=== PATIENT | male | born 1945 | race Caucasian/White ===

== ENCOUNTER 2016-10-15 01:59 | Inpatient (IN) | payer OTHER, MEDICARE ==
[~2016-10-15] VITALS: Ht 188 cm; Wt 115.7 kg
[~2016-10-15 01:59] MED LIST: ASPIRIN EC325 M2 PO; ASPIRIN EC81 M1 PO; BENAZEPRIL HCL40 MG PO; COLACE100 M1 PO; DILAUDID2 M1 PO; GLUCOPHAGE1000 M1 PO; MIRALAX17 G1 PO; NORVASC5 M1 PO; PRAVASTATIN SOD10 M2 PO
--- NOTE | 2016-10-15 10:22 | Admission Core Measures ---
Admission Meds I reviewed the following Meds: Current Medications Sig/Betty Start time Last Medication Dose Stop Time Status Admin Acetaminophen 975 MG ONCE 10/15 0000 NR (Tylenol) 10/15 2358 Amlodipine Besylate 5 MG DAILY 10/15 1000 AC (Norvasc) Cefazolin Sodium 2,000 MG ONCE 10/15 0000 NR (Kefzol-Ancef Inj) 10/15 2358 Lisinopril 20 MG DAILY 10/15 1000 AC (Prinivil) Oxycodone HCl 10 MG ONCE 10/15 0000 NR (Roxicodone) 10/15 2358 Pravastatin Sodium 10 MG 1700 10/15 1700 AC (Pravachol) Acute Coronary Syndrome Inclusion Criteria ACS Diagnosis No Inpatient Core Measures LDL Reminder: If No, please order W/I first 24hr of stay Congestive Heart Failure Inclusion Criteria CHF Diagnosis No Cerebrovascular accident Inclusion Criteria CVA/TIA Diagnosis No Inpatient Core Measures Bedside Swallow Eval Reminder: If BSE failed, place ST order Antithrombotic Reminder: Order Antithrombotic Medication by end of day 2 Antithrombotic Reminder: Document Reason Antithrombotic Not ordered by end of day 2 AFIB/Flutter Reminder: If Present, add to problem list AFIB/Flutter Reminder: Order Anticoag Medication for pts with AFIB/Flutter Atherosclerosis Reminder: If Present, add to problem list LDL Reminder: If No, please order W/I first 24hr of stay PT Order Reminder: If No, please order Venous thromboembolism Inpatient Core Measures VTE Risk Factors: Age > 40, Surgery No [facility] VTE prophylaxis d/t No contraindications No VTE Pharm Prophylaxis d/t No contraindications Inclusion Criteria - Per Current guidelines, there needs to be overlap - treatment for the first 5 days of Warfarin therapy. - Parenteral Anticoagulation (IV or SC) needs to be - given along with Warfarin therapy. VTE Diagnosis No VTE Type NONE VTE Confirmed by (Test) NONE Problem List As ranked by this Provider includes Assessment & Plan 1. Unilateral primary osteoarthritis, right knee HOME MEDS Home Med List Amlodipine Besylate (Norvasc) 5 MG TABLET 1 TAB PO DAILY UNKNOWN (Reported) Aspirin (Ecotrin*) 81 MG TABLET.DR 1 TAB PO DAILY PROPHO (Reported) Benazepril HCl 40 MG TABLET 1 TAB PO DAILY UNKNOWN (Reported) Metformin HCl (Glucophage) 1,000 MG TABLET 1 TAB PO BID DIABETES (Reported) Pravastatin Sodium 10 MG TABLET 1 TAB PO DAILY CHOLESTEROL (Reported)
[2016-10-15] MEDS ORDERED: COLACE100 M1 PO (10:31)
[2016-10-15] MEDS ORDERED: ASPIRIN EC325 M2 PO (10:31)
[2016-10-15] MEDS ORDERED: DILAUDID2 M1 PO (10:32)
[2016-10-15] MEDS ORDERED: PRILOSEC OTC20 M1 PO (10:32)
[2016-10-15] MEDS ORDERED: MIRALAX17 G1 PO (10:32)
[2016-10-15] MEDS ORDERED: MS CONTIN15 M2 PO (10:32)
--- NOTE | 2016-10-15 10:37 | Patient Discharge Instructions ---
Discharge Instructions General Discharge Information You were seen/treated for: RIGHT KNEE PAIN You had these procedures: RIGHT TOTAL KNEE REPLACEMENT Watch for these problems: INCREASING PAIN, REDNESS, WARMTH, SWELLING. DRAINAGE OF ANY TYPE FROM INCISION. INABILITY TO BEAR WEIGHT ON RIGHT LEG. FEVER >101.5. Do not soak the wound: Yes No bath, but you may shower: Yes Other wound care: NO OINTMENTS OF ANY TYPE AT ANY TIME ON INCISION, NO EXCEPTION. Special Instructions: ASPIRIN 325 TO BE TAKEN TWICE DAILY FOR MINIMUM OF 3 WEEKS. PLEASE TAKE PRILOSEC TO PROTECT YOUR STOMACH LINING WHILE ON ASPIRIN. PAIN MEDICATIONS CAN BE CONSTIPATING. PLEASE BE SURE YOU ARE TAKING MIRALAX AND COLACE UNTIL HAVING REGULAR BOWEL MOVEMENTS. Diet Continue normal diet: Yes Recommended Diet: Heart Healthy Additional DIET Information: ADVANCE TOLERATED Activity Full Activity/No Limits: No Activity Self Limited: Yes Pounds, do NOT lift more than: 10 Additional ACTIVITY Info: WEIGHT BEAR TOLERATED ON RIGHT LEG Acute Coronary Syndrome Inclusion Criteria At DC or during hospital stay patient has or had the following: ACS DIAGNOSIS No Discharge Core Measures Meds if any: Prescribed or Continued at Discharge Meds if any: NOT Prescribed or Continued at Discharge Congestive Heart Failure Inclusion Criteria At DC or during hospital stay patient has or had the following: CHF DIAGNOSIS No Discharge Core Measures Meds if any: Prescribed or Continued at Discharge Meds if any: NOT Prescribed or Continued at Discharge Cerebrovascular accident Inclusion Criteria At DC or during hospital stay patient has or had the following: CVA/TIA Diagnosis No Discharge Core Measures Meds if any: Prescribed or Continued at Discharge Meds if any: NOT Prescribed or Continued at Discharge Venous thromboembolism Inclusion Criteria VTE Diagnosis No VTE Type NONE VTE Confirmed by (Test) NONE Discharge Core Measures - Per Current guidelines, there needs to be overlap - treatment for the first 5 days of Warfarin therapy. - If discharged on Warfarin prior to 5 days of - overlap therapy, the patient will need to be - assessed for post discharge needs including - *Post discharge parental anticoagulation - *Warfarin and/or parental anticoagulation education - *Follow up date to check INR post discharge At least 5 days overlap therapy as Inpatient No Meds if any: Prescribed or Continued at Discharge Note: Overlap Therapy is Warfarin and Anticoagulant Meds if any: NOT Prescribed or Continued at Discharge
--- NOTE | 2016-10-15 10:40 | Surgical Discharge Summary ---
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 Patient/Self What is Your Primary Language? Luxembourgish Review of Systems: SEE H&P Hospital Course Course Attending Physician: CARITO HARVEY MD Primary Care Physician: JOSUE CARDENAS MD Hospital Course: VANNESA WAS ADMITTED TO THE HOSPITAL ON 10/15/2016 FOR AN ELECTIVE RIGHT TOTAL KNEE REPLACEMENT. HE TOLERATED THE PROCEDURE WELL AND WAS TRANSFERRED TO A GENERAL SURGICAL FLOOR. HIS DIET WAS ADVANCED AND TOLERATED, HIS PAIN WAS WELL CONTROLLED WITH ORAL PAIN MEDICATIONS. HE VOIDED SPONTANEOUSLY. HIS NEUROVASCULAR STATUS REMAINED INTACT. HE WAS EVALUATED AND TREATED BY PT. HE WAS DEEMED APPROPRIATE FOR DISCHARGE. Allergies: Coded Allergies: No Known Drug Allergies (03/25/16) Disposition Summary Disposition Principal Diagnosis: RIGHT KNEE UNILATERAL PRIMARY OSTEOARTHRITIS Additional Diagnosis: NONE Discharge Disposition: SNF Discharge Instructions General Discharge Information Code Status: Full Code Patient's Diet: HEART HEALTHY, ADVANCE TOLERATED Patient's Activity: WBAT Follow-Up Instructions/Appts: 6 WEEKS FROM DATE OF SURGERY IN OFFICE WITH DR. HARVEY Medications at Discharge Discharge Medications: Continue taking these medications: Metformin HCl (Glucophage) 1,000 MG TABLET 1 Tablet ORAL TWICE DAILY Comments: NOT GIVEN Benazepril HCl (Benazepril HCl) 40 MG TABLET 1 Tablet ORAL DAILY Comments: NOT GIVEN Pravastatin Sodium (Pravastatin Sodium) 10 MG TABLET 1 Tablet ORAL DAILY Comments: LAST GIVEN 03/29/16 @ 0900 Amlodipine Besylate (Norvasc) 5 MG TABLET 1 Tablet ORAL DAILY Comments: LAST GIVEN 03/29/16 @ 0900 Aspirin (Ecotrin*) 81 MG TABLET. 1 Tablet ORAL DAILY Start taking the following new medications: Aspirin (Ecotrin*) 325 MG TABLET. 1 Tablet ORAL TWICE DAILY Qty = 60 No Refills Docusate Sodium (Colace) 100 MG CAPSULE 1 Capsule ORAL TWICE DAILY Qty = 14 No Refills Instructions: DISCONTINUE USE IF YOU DEVELOP LOOSE STOOL OR DIARRHEA Hydromorphone HCl (Dilaudid) 2 MG TABLET 1-2 Tablet ORAL EVERY 4-6 HOURS as needed for PAIN Qty = 36 No Refills Polyethylene Glycol 3350 (Miralax) 17 GRAM POWD.PACK 1 Packet ORAL DAILY Qty = 7 No Refills Instructions: dissolve in water, DISCONTINUE USE IF YOU DEVELOP LOOSE STOOL OR DIARRHEA Morphine Sulfate (Ms Contin) 15 MG TABLET.ER 1 Tablet ORAL TWICE DAILY Qty = 6 No Refills Omeprazole Magnesium (Prilosec Otc) 20 MG TABLET.DR 1 Tablet ORAL DAILY Qty = 30 No Refills Copies To: CANDICE BACON,CARITO
[2016-10-15 13:45] VITALS: BP 132/78
--- NOTE | 2016-10-15 13:45 | NUR ---
NURSING NOTE: PT ARRIVED TO FLOOR VIA STRETCHER WITH DISTRIBUTION FROM PACU WITH [ACU RN, PT AWAKE, A/OX3, ASSISTED TO BED, BED ALARM PLACE, ALL FALL PROTOCOL PREVENTIONS IN PLACE, ROOM AIR, INSENTIVE SPIR GIVEN AND TAUGHT. BIOMED ALREADY CHECKED PTS OWN CPAP. ALPS TO BLE. GEOVANY WRAP TO R LE; PT DENIES PAIN AT THIS TIME, +PULSES, ONQ PUMP PER MD ORDER, IVF PER MD ORDER. ICE TO R KNEE INTACT.INFO PACKET GIVEN, HOULRY ROUNDING EXPLAINED, URINAL AT BEDSIDE; DTV BY 1800PM. SEE ADMISSION ASESSMENTS.
--- NOTE | 2016-10-15 14:18 | PN- Orthopedic ---
Subjective Subjective: POST OP CHECK Patient is s/p right TKR. Resting comfortably in bed. No complaints of pain to right knee. Denies N/V, F/C, CP/SOB. Yet to ambulate. Awaiting spontaneous void. Hungry. Objective Vital Signs and I&Os Vital Signs Date Time Temp Pulse Resp B/P Pulse O2 O2 Flow FiO2 Ox Delivery Rate 10/15 1345 97.9 78 20 132/78 93 Room Air Physical Exam: Gen: AAOx3 in NAD Cor: S1+S2+ Lungs: CTA tomás Abd: soft, NT, ND, +Bs x4 Ext: right knee examined. Dressing C/D/I. Ice pack in place. Thigh/calf compartments soft. Foot warm. DP palpable. Sensation intact, dorsiflexion and plantar flexion intact. Current Medications: Current Medications Sig/Betty Start time Last Medication Dose Route Stop Time Status Admin Acetaminophen 650 MG Q4P PRN 10/15 1400 AC PO Acetaminophen 0 .STK-MED ONE 10/15 0814 DC PO Acetaminophen 975 MG ONCE 10/15 0000 DC PO 10/15 2359 Amlodipine Besylate 5 MG DAILY 10/16 1000 AC PO Amlodipine Besylate 5 MG DAILY 10/15 1000 DC PO Aspirin 325 MG BID 10/15 2200 AC PO Cefazolin Sodium 2 GM IQ8 10/15 1600 AC N/A 1 UNIT IV 10/16 0029 Cefazolin Sodium 2,000 MG ONCE 10/15 0000 DC IV 10/15 2359 Dextrose/Sodium 1,000 ML .[id number] 10/15 1400 AC 10/15 Chloride IV 1407 Docusate Sodium 100 MG BID 10/15 2200 AC PO Hydromorphone HCl 2 MG Q4P PRN 10/15 1400 AC PO Hydromorphone HCl 4 MG Q4P PRN 10/15 1400 AC PO Insulin Human Regular 0 TIDAC/HS 10/15 1200 AC SC Ketorolac 15 MG Q8P PRN 10/15 1400 AC Tromethamine IV 10/18 1400 Lisinopril 40 MG DAILY 10/16 1000 DC PO Lisinopril 40 MG DAILY 10/16 1000 AC PO Lisinopril 20 MG DAILY 10/15 1000 DC PO Morphine Sulfate 2 MG Q2P PRN 10/15 1400 AC IV Omeprazole 40 MG DAILY AC 10/16 0700 AC PO Ondansetron HCl 4 MG Q6P PRN 10/15 1400 AC IV Oxycodone HCl 0 .STK-MED ONE 10/15 0815 DC PO Oxycodone HCl 10 MG ONCE 10/15 0000 DC PO 10/15 2359 Polyethylene Glycol 17 GM DAILY 10/16 1000 AC PO Pravastatin Sodium 10 MG 1700 10/15 1700 DC PO Pravastatin Sodium 10 MG 1700 10/15 1700 AC PO Promethazine HCl 12.5 MG Q6P PRN 10/15 1400 AC IV 10/22 1029 Ropivacaine 500 ML ONCE ONE 10/15 1100 AC ON-Q Ball 1 BAG INJ 10/17 1259 Assessment/Plan Assessment/Plan A: s/p right TKR. AVSS. Plan: Due to void between 4-6pm. PT/OT eval in am. STR likely necessary for discharge. Bowel regimen to continue. Continue current pain regimen. Dressing change POD #2. Core Measures/Miscellaneous Venous Thromboembolism VTE Risk Factors: Age > 40, Surgery VTE Contraindications: No Contraindications VTE Diagnosis: No VTE Type: NONE VTE Confirmed by (Test): NONE Beta Rose Marie Is Beta Rose Marie a Home Med? No Antibiotics Is Patient on Antibiotics? Yes If Yes: prophylaxis
--- NOTE | 2016-10-15 14:29 | Operative Report ---
Operative/Inv Procedure Report Surgery Date: 10/15/16 Name of Procedure: Right total knee replacement Pre-Operative Diagnosis: Primary right knee DJD Post-Operative Diagnosis: Same Estimated Blood Loss: 50ml to 100ml Surgeon/Storage Facility Rental Clerk: CANDICE BACON,CARITO Meza Anesthesia: block Operative/Procedure Note Note: Description of Procedure: The patient was taken to the operating room and positively identified. After induction of spinal anesthesia and administration of appropriate pre-operative antibiotics, the patient was positioned supine on the operating room table and all bony prominences were well padded. A well-padded pneumatic tourniquet was placed on the right upper thigh. After performing a surgical timeout, the right lower extremity was prepped and draped in the usual sterile fashion. After exsanguination with Esmarch the tourniquet was inflated to 250mm of mercury. A standard medial parapatellar approach was made to the knee. This was carried down through skin and subcutaneous tissue to the level of the fascia. Meticulous hemostasis was maintained with Bovie electrocautery. The extensor mechanism and patellar retinaculum were opened sharply and the patella was everted. The infrapatellar fat was resected in order to improve exposure. Osteophytes were trimmed from the patella and femoral condyles and the patella was re-everted and tucked laterally. A medial release was performed and the cruciate ligaments were resected. The tibia was then subluxed anteriorly. Utilizing the appropriate extra-medullary guide, the proximal tibia was trimmed perpendicular to the long axis of the tibial shaft. Attention was then turned to the femur. After opening the medullary canal, the distal femoral cut was made in 6 degrees of valgus utilizing the appropriate intra-medullary guide. The extension gap was checked and found to be appropriate. The femur was then sized and the remainder of the femoral cuts were made with a size 6 4-in-1 femoral cutting guide. The flexion gap was checked and found to be symmetric and appropriate. The knee was then trialed with a size 6 femoral component, a size 6 tibial component and a size 11 mm TS polyethylene insert. The patella was not resurfaced due to its excellent preoperative condition. This yielded excellent range of motion, stability and patellar tracking. All trial components were removed and the knee was copiously irrigated with sterile saline. All components were cemented into place with Josue Simplex cement. All the components were of the Savage Triathlon knee system of the above stated sizes. The knee was again irrigated after cementation. The extensor mechanism and patellar retinaculum were repaired using interrupted #1 vicryl suture. The skin was re-approximated with 2-0 vicryl and closed with beth. A sterile dressing was applied, the tourniquet was deflated, the patient was awakened and taken to the recovery room in satisfactory condition.
[2016-10-15 16:14] VITALS: BP 130/77
[2016-10-15 18:42] VITALS: BP 128/72
[2016-10-15 21:38] VITALS: BP 132/70
[2016-10-16 01:14] VITALS: BP 150/82
[2016-10-16 05:18] VITALS: BP 130/90
[2016-10-16 08:20] LABS: ABSOLUTE BASOPHIL COUNT 0 /CUMM (0.0-0.2); ABSOLUTE EOSINOPHIL COUNT 0 /CUMM (0.0-0.7); ABSOLUTE GRANULOCYTE CT 5.2 /CUMM (1.4-6.5); ABSOLUTE LYMPH COUNT 0.5 /CUMM (1.2-3.4); ABSOLUTE MONOCYTE COUNT 0.3 /CUMM (0.10-0.60); BASOPHIL % 0.3 % (0.0-2.0); EOSINOPHIL % 0 % (0-5); MEAN PLATELET VOLUME 9.2 FL (7.4-10.4); PLATELET COUNT 171 /CUMM (130-400)
[2016-10-16 09:03] LABS: HEMATOCRIT 32.7 % (42-52); MEAN CORPUSCULAR HGB 31.5 PG (27.0-31.0); MEAN CORPUSCULAR HGB CONC 34.6 G/DL (33.0-37.0); MEAN CORPUSCULAR VOLUME 90.9 FL (80.0-94.0); RBC DISTRIBUTION WIDTH 14.1 % (11.5-14.5)
[2016-10-16 09:34] LABS: GRANULOCYTE % 86.2 % (42.2-75.2)
[2016-10-16 10:00] VITALS: BP 124/68
--- NOTE | 2016-10-16 10:47 | PN- Orthopedic ---
Subjective Subjective: PT. HAS NO COMPLAINTS. STATES HE IS COMFORTABLE DENIES DYSPNEA OR CHEST PAIN Objective Vital Signs and I&Os Vital Signs Date Time Temp Pulse Resp B/P Pulse O2 O2 Flow FiO2 Ox Delivery Rate 10/16 0908 Room Air 3.0L 10/16 0813 142/76 10/16 0518 98.0 65 20 130/90 95 Room Air 10/16 0114 97.5 68 18 150/82 96 CPAP 3.0L 10/15 2138 98.0 72 20 132/70 97 Room Air 10/15 1842 97.5 72 20 128/72 97 Room Air 10/15 1614 97.6 91 20 130/77 94 Room Air 10/15 1345 97.9 78 20 132/78 93 Room Air Intake & Output 10/16 1600 10/16 0800 10/16 0000 10/15 1600 10/15 0800 10/15 0000 Intake Total 1080 1200 125 Output Total 1200 0 Balance 1080 0 125 Intake, IV 600 600 25 Intake, Oral 480 600 100 Number 0 Bowel Movements Output, Urine 1200 0 Patient 255 lb Weight ALERT , ORIENTED, NO DISTRESS HEART REGULAR LUNGS CLEAR BILAT. ANTERIOR ABDOMEN BENIGN R KNEE DRESSING IS C/D/I, ON Q PUMP IN PLACE, INTACT INSERTION SITE DSITAL FOOT WITH GOOD PERFUSION, WARM TO TOUCH, FOOT FLEXION / EXTENSION INTACT Results Last 48 Hours of Labs: Laboratory Tests 10/16 0710 Chemistry Sodium (137 - 145 mmol/L) 137 Potassium (3.5 - 5.1 mmol/L) 4.4 Chloride (98 - 107 mmol/L) 103 Carbon Dioxide (22 - 30 mmol/L) 24 Anion Gap (5 - 16) 11 BUN (9 - 20 mg/dL) 22 H Creatinine (0.7 - 1.2 mg/dL) 0.7 Estimated GFR (>60 ml/min) > 60 BUN/Creatinine Ratio (7 - 25 %) 31.4 H Hematology CBC w Diff NO MAN DIFF REQ WBC (4.8 - 10.8 /CUMM) 6.0 RBC (4.70 - 6.10 /CUMM) 3.60 L Hgb (14.0 - 18.0 G/DL) 11.3 L Hct (42 - 52 %) 32.7 L MCV (80.0 - 94.0 FL) 90.9 MCH (27.0 - 31.0 PG) 31.5 H RDW (11.5 - 14.5 %) 14.1 Plt Count (130 - 400 /CUMM) 171 MPV (7.4 - 10.4 FL) 9.2 Gran % (42.2 - 75.2 %) 86.2 H Lymphocytes % (20.5 - 51.1 %) 8.0 L Monocytes % (1.7 - 9.3 %) 5.5 Eosinophils % (0 - 5 %) 0 Basophils % (0.0 - 2.0 %) 0.3 Absolute Granulocytes (1.4 - 6.5 /CUMM) 5.2 Absolute Lymphocytes (1.2 - 3.4 /CUMM) 0.5 L Absolute Monocytes (0.10 - 0.60 /CUMM) 0.3 Absolute Eosinophils (0.0 - 0.7 /CUMM) 0 Absolute Basophils (0.0 - 0.2 /CUMM) 0 PUBS MCHC (33.0 - 37.0 G/DL) 34.6 Assessment/Plan Assessment/Plan S/P R TKA POD#1 FOR DJD STABLE HEMODYNAMICS R KNEE WITH GOOD MOTION NO SIGNS OF INFECTION, LABS TODAY WITH STABLE H/H COMFORTABLE ON CURRENT PAIN REGIMEN FOLLOWED BY PT, REQUIRES ASSISTANCE, PLAN FOR REHAB ON THURSDAY LIKELY WILL D/C ON Q PUMP TOMORROW ELEVATED BLOOD SUGARS, MANAGED WITH INSULIN SS.PT. WILL RESUME METFORMIN AT DISCHARGE Core Measures/Miscellaneous Venous Thromboembolism VTE Risk Factors: Age > 40, Surgery VTE Contraindications: No Contraindications VTE Diagnosis: No VTE Type: NONE VTE Confirmed by (Test): NONE Beta Rose Marie Is Beta Rose Marie a Home Med? No Antibiotics Is Patient on Antibiotics? Yes If Yes: prophylaxis
[2016-10-16 14:37] VITALS: BP 126/65
--- NOTE | 2016-10-16 17:07 | NUR ---
SPOKE WITH IVANNA SANDS REGARDING METFORMIN DOSING- OK TO GIVE SINCE BS HAVE BEEN HIGH INFORMED HIM THAT HIS CURRENT IS 164 AND WILL BE GETTING 4 UNITS NOVOLIN STILL GIVE (WILL BE DELAYED, WAITING FOR MED FROM PHARMACY) WILL MONITOR BS AT 2100 SCHEDULED
[2016-10-16 22:36] VITALS: BP 122/70
[2016-10-17 06:57] VITALS: BP 138/76
[2016-10-17 06:58] VITALS: BP 138/76
--- NOTE | 2016-10-17 07:46 | PN- Orthopedic ---
Subjective Subjective: Pain controlled with oral dilaudid. Reports loud neighbor, preventing him from resting overnight. Tolerating diet. No nausea. Out of bed with PT without difficulty. No shortness of breath. No chest pains. Voiding well. No bm yet, but believes a second round of miralax will help today. Anticipates discharge to rehab tomorrow. Objective Vital Signs and I&Os Vital Signs Date Time Temp Pulse Resp B/P Pulse O2 O2 Flow FiO2 Ox Delivery Rate 10/17 0658 97.8 86 20 138/76 92 Room Air 10/16 2236 98.1 67 19 122/70 97 BIPAP 10/16 1437 97.7 72 20 126/65 98 Room Air 10/16 1000 98.0 80 20 124/68 94 Room Air 10/16 0908 Room Air 3.0L 10/16 0813 142/76 Intake & Output 10/17 0800 10/17 0000 10/16 1600 10/16 0800 10/16 0000 10/15 1600 Intake Total 480 555 739 2609 1200 125 Output Total 191 170 4762 0 Balance 480 190 976 5078 0 125 Intake, IV 75 600 600 25 Intake, Oral 480 600 800 480 600 100 Number 0 0 Bowel Movements Output, Urine 007 199 8503 0 Patient 255 lb Weight Physical Exam: General - alert & oriented x 3. comfortable. no acute distress. Lungs - clear bilaterally. no w/r/r. Cardiac - s1s2. Abdomen - soft. nontender. Extremities - dressing changed. incision well approximated. no erythema. no exudates. beth intact. on q removed. nvi. Assessment/Plan Assessment/Plan This 71 year old male with hx htn, hld, dm, is POD#2 s/p right TKR pain controlled tolerating diet dressing changed continue PT bowel regime in place. to try miralax again today on q removed no labs to check metformin restarted yesterday for elevated accuchecks d/c planning for str tomorrow will d/w Core Measures/Miscellaneous Venous Thromboembolism VTE Risk Factors: Age > 40, Surgery VTE Contraindications: No Contraindications VTE Diagnosis: No VTE Type: NONE VTE Confirmed by (Test): NONE Beta Rose Marie Is Beta Rose Marie a Home Med? No Antibiotics Is Patient on Antibiotics? Yes If Yes: prophylaxis
--- NOTE | 2016-10-17 10:20 | PN- Orthopedic ---
Surgical Brief Attending Note Brief Attending Note: Doing well s/p RTKA POD#2 WBAT. ASA for DVT ppx. D/c planning
[2016-10-17 13:56] VITALS: BP 130/64
--- NOTE | 2016-10-17 22:27 | NUR ---
ALERT AND ORIENTED X 3. VITAL SIGNS STABLE. DENIES CHEST PAIN. + PULSES ON ROOM AIR. INDEP W/RW. DSG IS CLEAN, DRY AND INTACT. MEDICATION GIVEN FOR DISCOMFORT. PATIENT RESTING AT THIS TIME WILL CONTINUE TO MONITOR
[2016-10-17 22:29] VITALS: BP 112/68
[2016-10-18 06:08] VITALS: BP 122/70
[2016-10-18 12:50] VITALS: BP 122/70
== END 2016-10-18 13:17 | DRG 470 ==
LOC: ENRESERVDT → ENRESERVTM → SDA 01:59 → 2NB 01:59 → ENPENDDIS 01:59 → 2NB 13:51
PROVIDERS: Nurse Practitioner; ADMIT Orthopaedic Surgery
PROC: 0SRC0J9 Replacement of Right Knee Joint with Synthetic Substitute, Cemented, Open Approach (ICD-10-PCS; principal; 2016-10-15)
DX: M17.11 Unilateral primary osteoarthritis, right knee (principal); E11.9 Type 2 diabetes mellitus without complications; I10 Essential (primary) hypertension; E78.5 Hyperlipidemia, unspecified; Z79.84 Long term (current) use of oral hypoglycemic drugs; Z79.82 Long term (current) use of aspirin; E66.9 Obesity, unspecified; Z68.32 Body mass index [BMI] 32.0-32.9, adult
CPT/HCPCS: 2NBSP; 82436; 88305; 97110-GO; 97116-GO; 97161-GP; 97530-GO; C1713; J0690; J1815; J2405; J2550; J2795; J7042